=== PATIENT | male | born 1960 | race Hispanic/Latino ===

== ENCOUNTER 2017-10-01 16:43 | Outpatient (CLI) | payer MEDICARE ==
--- NOTE | 2017-10-02 07:44 | Magnetic Resonance Report ---
MR CERVICAL SPINE WITHOUT CONTRAST: HISTORY: Gait disorder, sensory level. TECHNIQUE: Axial T2. Sagittal T1, T2 and STIR. COMPARISON: None. Correlation is made with the MR brain without contrast performed the same day. FINDINGS: The cervical spinal cord is normal size and signal intensity. No mass or abnormal intramedullary signal. Normal height and alignment of the cervical vertebral bodies. The posterior elements are in appropriate relationship. No bone lesion, fracture or subluxation is identified. There is mild diffuse disc desiccation. Minimal disc space narrowing is noted at C5-6. Minimal arthritic changes in the facet joints. No hypertrophic changes. C2-3: No significant abnormality. C3-4: Minimal bilateral uncovertebral spurring is identified. No central canal stenosis or significant neural foraminal narrowing. C4-5: No significant abnormality. C5-6: A mild diffuse posterior bulging disc is identified. A small left paracentral disc protrusion is identified without significant mass effect. Mild facet arthropathy. No central canal stenosis or significant neural foraminal narrowing. C6-7: A small midline central disc protrusion is identified without mass effect. No central canal stenosis or significant neural foraminal narrowing. C7-T1: No significant abnormality. IMPRESSION: Minimal to mild cervical spondylosis which appears appropriate for this persons age. A small left paracentral disc protrusion at C5-6 and small midline disc protrusion at C6-7 are identified without significant mass effect. No central canal stenosis or high-grade neural foraminal narrowing.
--- NOTE | 2017-10-24 15:23 | Magnetic Resonance Report ---
MRI BRAIN WITHOUT CONTRAST: 10/01/17 16:43:00 CLINICAL: Gait disorder. This study was brought to my attention for dictation on 10/24/17. TECHNIQUE: Axial diffusion, T1, T2, FLAIR, gradient echo T2*, and sagittal T1 sequences on a 1.5 Roxi magnet. FINDINGS: The ventricles and sulci are large for age but the ventricles are disproportionately large compared to the sulci. No restricted diffusion. Moderate bilateral multifocal periventricular and subcortical white matter hyperintensities on FLAIR and T2. No mass or mass effect. No hemorrhage, edema or extra-axial collection. Normal pituitary and optic chiasm. The brainstem and cerebellum are normal. Intact vascular flow voids. Normal sinuses. The orbits, and soft tissues are normal. Normal calvarium and skull base. IMPRESSION: 1. Global cortical atrophy and disproportionate ventriculomegaly which suggests normal pressure hydrocephalus as a possible cause of gait disturbance. 2. No evidence of infarct or hemorrhage. 3. Moderate chronic white matter microangiopathy.
== END 2017-10-01 16:44 | disposition home or self-care (01) ==
LOC: MRI 16:43
PROVIDERS: ATTEND Specialist
DX: M50.222 Other cervical disc displacement at C5-C6 level (principal); M50.223 Other cervical disc displacement at C6-C7 level; M13.88 Other specified arthritis, other site; M12.88 Other specific arthropathies, not elsewhere classified, other specified site; M47.892 Other spondylosis, cervical region; G31.89 Other specified degenerative diseases of nervous system; G93.89 Other specified disorders of brain; I73.89 Other specified peripheral vascular diseases; H81.10 Benign paroxysmal vertigo, unspecified ear
CPT/HCPCS: 70551; 72141

== ENCOUNTER 2019-04-05 08:19 | Day surgery (SDC) | payer MEDICARE ==
[2019-04-05] MEDS ORDERED: NACL 0.9% 1000 ML 1,000 ML IV SCH (09:00)
--- NOTE | 2019-04-05 10:08 | Anesthesia Consultation ---
Anesthesia Consult and Med Hx Date of service: 04/05/19 - Airway Anesthetic Teeth Evaluation: Dentures ROM Head & Neck: Adequate Mental/Hyoid Distance: Adequate Mallampati Class: Class II Intubation Access Assessment: Possibly Difficult - Pulmonary Exam CTA: Yes - Cardiac Exam Cardiac Exam: RRR - Pre-Operative Health Status ASA Pre-Surgery Classification: ASA4 Proposed Anesthetic Plan: MAC - Pulmonary Hx Smoking: Yes (quit 2 yrs ago) Hx Asthma: Yes Hx Respiratory Symptoms: No COPD: Yes Hx Sleep Apnea: Yes - Cardiovascular System Hx Hypertension: Yes Hx Coronary Artery Disease: Yes Hx Heart Attack/AMI: Yes (2015 s/p CABG) Hx Percutaneous Transluminal Coronary Angioplasty (PTCA): Yes (most recent in 2014) Hx Cardia Arrhythmia: No Hx Pacemaker: No Hx Internal Defibrillator: No - Central Nervous System Hx Seizures: No CVA: No Hx Psychiatric Problems: No - Gastrointestinal Hx Gastroesophageal Reflux Disease: No - Endocrine Hx Renal Disease: Yes (CKD) Hx End Stage Renal Disease: No Hx Liver Disease: No Hx Insulin Dependent Diabetes: Yes Hx Thyroid Disease: No - Other Systems Hx Obesity: Yes (BMI 48) - Additional Comments Anesthesia Medical History Comments: No hx anesthetic complications. Stable cardiac status. No symptoms of decompensation today. Most recent cardiology records requested from outpatient crew leader. EF 25-30%, fixed deficit on nuc stress test, no changes in med regimen. Last dose plavix 6 days ago.
--- NOTE | 2019-04-05 10:08 | Anesthesia Day of Surgery ---
Anesthesia Day of Surgery - Day of Surgery Patient Examined: Yes Patient H&P Reviewed: Yes Patient is NPO: Yes
[2019-04-05] MEDS ORDERED: KETALAR ONE (11:03)
[2019-04-05] MEDS ORDERED: VERSED ONE (11:04)
[2019-04-05] MEDS ORDERED: DIPRIVAN 10 MG/ML IV ONE ×3 (11:04)
--- NOTE | 2019-04-05 12:15 | Operative Report ---
Operative Report Operative Report: Date of procedure: 04/05/2019 Procedure: Colonoscopy with Multiple Snare polypectomies, Multiple Hot Biopsy Polypectomies, Ablation of multiple colon polyps and Multiple submucosal injections. Attending physician: Miguel Flores M.D. [employer] Principal: Miguel Flores M.D. Indication: Patient is a 58-year-old male who presents for screening colonoscopy. He hasd a positive cologuard test. This colonoscopy serves to evaluate patient so that treatment may be directed based on the findings. Consent: Informed consent was obtained after advising the patient and family regarding nature of this procedure, its indications, potential benefits as well as possible complications including but not limited to bleeding perforation and adverse reaction to medication, infection as well as other cardiopulmonary complications. An informed written and verbal consent was then obtained after due opportunity was provided for questions and answers. Monitoring: Patient was monitored continuously with pulse oximetry and electrocardiographic recordings as well as blood pressure recordings. Vital signs remained stable throughout this procedure with no untoward events. Preoperative assessment: Patient was assessed immediately prior to this procedure for capacity to tolerate monitored anesthesia care and moderate sedation as well as general anesthesia. Patient's ASA classification is 3, Mallampati class is 2, Hyomental distance is 3. Instrument: Olympus video colonoscope Medications: Induction was performed using ketamine. Patient also received midazolam 2 mg given intravenously in divided doses. Also, Propofol was given intravenously in divided doses. For details please refer to anesthesia records. Description of procedure: Patient was placed in the left lateral decubitus position after achieving sedation, a digital rectal examination was performed following which the colonoscope was introduced into the anal verge and advanced to the cecum which was identified by the cecal valve, the appendiceal orifice, as well as by the cecal strap and direct transillumination. The colonoscope was subsequently withdrawn with careful inspection of all mucosal surfaces. Patient tolerated this procedure well and was subsequently taken to the recovery room. The following findings were noted. Findings: The preparation was excellent. The patient did not have any retained stool. The colon however was moderately tortuous. The procedure was prolonged due to the number of polyps that patient had. The cecum otherwise was normal. In the ascending colon, patient had a 1 cm flat polyp which was elevated with submucosal injection of saline. It was then removed with snare electrocautery a nd retrieved. At the hepatic flexure, patient had a diminutive flat polyp which was removed by hot biopsy polypectomy and ablated. There was an adjoining flat 1 cm polyp which was elevated with some saline and then removed by snare electrocautery and retrieved. In the transverse colon, patient had 3 polyps each measuring approximately 1 cm to 1.5 cm. One of the polyps clearly was over 1.5 cm. All polyps in the transverse colon were elevated with submucosal injection of saline and removed by snare electrocautery and retrieved. In the descending colon, patient had 5 polyps. These polyps measured between 8 mm to 1.5 cm. All polyps were flat and elevated with submucosal injection of saline and removed by snare electrocautery and retrieved. There was an adjoining diminutive polyp which again was ablated. In the sigmoid colon, patient had 1 sessile 3-4 mm polyp which was removed by hot biopsy polypectomy and retrieved. There were 2 additional polyps each measuring approximately 1 cm that were flat elevated with submucosal injection of saline and removed by snare electrocautery. In the rectum, patient had a 1 cm polyp which was flat and he was elevated with submucosal injection of saline and removed by snare electrocautery. There were 2 additional polyps each measuring between 5 mm. These were sessile. These were removed by hot biopsy polypectomy and retrieved. There were 2 additional diminutive 3-4 mm flat polyps which were completely ablated. On the retroflexed view of the anal verge, vision had internal hemorrhoids. The defect at some of the polypectomy sites was then closed with a Hemoclip. In all 3 hemoclips were used. On a retroflexed view of the anal verge, patient had internal hemorrhoids. Impression: Ascending colon polyp status post submucosal injection and snare polypectomy. Hepatic function flexure polyp status post ablation Hepatic flexure polyp status post submucosal injection and snare polypectomy Multiple transverse colon polyp status post submucosal injection and snare polypectomy Multiple descending colon polyp status post submucosal injection and snare polypectomy Descending colon polyp status post hot biopsy polypectomy and ablation Sigmoid colon polyp status post submucosal injection and snare polypectomy Sigmoid colon polyp status post ablation Sigmoid colon polyp status post hot biopsy polypectomy. Rectal polyp status post hot biopsy polypectomy Rectal polyp status post submucosal injection and snare polypectomy Rectal polyp status post ablation. Internal hemorrhoids Plan: Follow pathology report. High-fiber diet. Repeat colonoscopy in 6-12 months.
--- NOTE | 2019-04-05 12:16 | Discharge Summary ---
Short Stay Discharge Plan Activity: advance as tolerated Weight Bearing Status: Weight Bear as Tolerated Diet: regular Additional Instructions: Post Sedation D/C Instructions When you return home you may resume your regular diet unless otherwise directed. -Go directly home from the hospital and rest quietly. You may resume normal activities tomorrow. -Do NOT drive, return to work, operate any machinery or make any important personal or business decisions today. -Do NOT drink any alcohol or take nerve or sleeping drugs. They add to the effects of the medicine still present in your body. Follow up with: SCOTTY GAONA MD [Primary Care Provider] - 7 Days
[2019-04-05 12:53] VITALS: BP 131/86
== END 2019-04-05 08:20 | disposition home or self-care (01) ==
LOC: GIO 08:19
PROVIDERS: ATTEND Internal Medicine Gastroenterology
DX: D12.3 Benign neoplasm of transverse colon (principal); D12.4 Benign neoplasm of descending colon; K63.5 Polyp of colon; K62.1 Rectal polyp; K64.8 Other hemorrhoids; I12.9 Hypertensive chronic kidney disease with stage 1 through stage 4 chronic kidney disease, or unspecified chronic kidney disease; N18.3 Chronic kidney disease, stage 3 (moderate); E11.22 Type 2 diabetes mellitus with diabetic chronic kidney disease; E78.00 Pure hypercholesterolemia, unspecified; J44.9 Chronic obstructive pulmonary disease, unspecified; G47.30 Sleep apnea, unspecified; K21.9 Gastro-esophageal reflux disease without esophagitis; I25.10 Atherosclerotic heart disease of native coronary artery without angina pectoris; E66.9 Obesity, unspecified; Z68.42 Body mass index [BMI] 45.0-49.9, adult; Z95.5 Presence of coronary angioplasty implant and graft; Z79.899 Other long term (current) drug therapy; Z87.891 Personal history of nicotine dependence
CPT/HCPCS: 45381; 45384; 45385; 45388; 82962; 88305; J2250; J2704; J7030

== ENCOUNTER 2019-11-25 11:14 | Day surgery (SDC) | payer MEDICARE ==
[~2019-11-25 11:14] MED LIST: SODIUM CHLORIDE 0.9% 1000 ML 1,000 ML IV SCH
--- NOTE | 2019-11-25 14:25 | Anesthesia Consultation ---
Anesthesia Consult and Med Hx Date of service: 11/25/19 - Airway Anesthetic Teeth Evaluation: Dentures (upper) ROM Head & Neck: Adequate Mental/Hyoid Distance: Adequate Mallampati Class: Class III Intubation Access Assessment: Possibly Difficult - Pre-Operative Health Status ASA Pre-Surgery Classification: ASA3 - Pulmonary Hx Smoking: Yes Hx Asthma: Yes Hx Respiratory Symptoms: No SOB: Yes COPD: Yes Hx Sleep Apnea: Yes - Cardiovascular System Hx Hypertension: Yes Hx Coronary Artery Disease: Yes (s/p CABG) Hx Heart Attack/AMI: Yes Hx Percutaneous Transluminal Coronary Angioplasty (PTCA): Yes (most recent in 2014) Hx Cardia Arrhythmia: No Hx Pacemaker: No Hx Internal Defibrillator: No - Central Nervous System Hx Seizures: No CVA: No Hx Psychiatric Problems: No - Gastrointestinal Hx Gastroesophageal Reflux Disease: No - Endocrine Hx Renal Disease: Yes (CKD) Hx End Stage Renal Disease: No Hx Liver Disease: No Hx Insulin Dependent Diabetes: Yes Hx Thyroid Disease: No - Other Systems Hx Obesity: Yes (BMI 49.3) - Additional Comments Anesthesia Medical History Comments: EF 25-30%, stable cardiacwise according last visit with stenocaptioner, last nytroglicerine 2 months ago
--- NOTE | 2019-11-25 14:29 | Anesthesia Day of Surgery ---
Anesthesia Day of Surgery - Day of Surgery Patient Examined: Yes Patient H&P Reviewed: Yes Patient is NPO: Yes Beta Blockers: Yes
[2019-11-25] MEDS ORDERED: propofoL 200 MG/20 ML VIAL IV ONE ×2 (14:31)
[2019-11-25] MEDS ORDERED: LIDOCAINE MPF (2%) 20 MG/1 ML VIAL 5 ML ONE (15:30)
--- NOTE | 2019-11-25 16:09 | Operative Report ---
Operative Report Operative Report: Colonoscopy with multiple snare polypectomies, multiple polyp ablations, multiple submucosal injections, Hemoclip application. DATE: 11/25/2019 ATTENDING PHYSICIAN: Miguel Flores M.D. ATMOSPHERIC DRIER TENDER: Miguel Flores M.D. INDICATIONS: Patient is a 59y.o. male who presents for surveillance colonoscopy because of personal history of colon polyps. A colonoscopy is done to evaluate patient so that treatment may be directed based on the findings. CONSENT: Informed consent was obtained after the patient was advised regarding the nature of this procedure, its indications, potential benefits as well as possible complications including but not limited to bleeding, perforation, adverse reaction to medications, infection as well as cardiopulmonary complications. An informed written and verbal consent was then obtained after due opportunity was provided for questions and answers. MONITORING: Patient monitored continuously with pulse oximetry, electrocardiographic recordings as well as automatic blood pressure recordings. Patient remained stable throughout the procedure with no untoward events. PREOPERATIVE ASSESSMENT: Patient was assessed immediately prior to this procedure for capacity to tolerate moderate sedation/monitored anesthesia care. [place] [employer]hes[employer] association classification is 32. Mallampati class is 2. Hyomental distance is 3. INSTRUMENT: Olympus video colonoscope [id number]. MEDICATIONS: Propofol given intravenously in divided doses. For details, please refer to anesthesia records. DESCRIPTION OF PROCEDURE: Patient was placed in the left lateral decubitus position, after achieving sedation, a digital rectal examination was performed following which the colonoscope was introduced into the anal verge and advanced under direct visualization to the cecum which was identified by the ileocecal valve, the appendiceal orifice, the cecal strap as well as by direct transillumination in the right lower quadrant. Color texture mucosa and anatomy of the colon were carefully examined with the colonoscope. The colonoscope was then gently withdrawn with careful inspection of all mucosa surfaces. The patient tolerated the procedure well with no complications. After completion of the examination, patient was transferred to the recovery room. The prep written regimen was GoLYTELY and the preparation was fair. The following findings were noted. FINDINGS: The [place] prep scale score was 5. Patient had some retained stool in segments of the colon. The withdrawal time from the cecum was greater than 20 minutes. The colonoscopy was technically difficult and prolonged due to substantial retained stool and also significant number of colon polyps. In the proximal ascending colon, patient had a sessile 1.5 cm polyp which was elevated with submucosal injection of saline and removed by snare polypectomy. The base of the polyp was ablated. There were 3 diminutive flat polyps in the transverse colon that were ablated. There was a 1.5 to 2 cm polyp that was flat in the transverse colon that was elevated with submucosal injection of saline and lois justin completely with snare polypectomy. The edges of the polypectomy site were ablated. A Hemoclip was applied after removal of this polyp to close the polypectomy defect. There was another 1 cm polyp seen in the transverse colon. Again this was flat. It was elevated with submucosal injection of saline and snare polypectomy. In the distal transverse colon, there was another 1 cm polyp that was elevated with submucosal injection of saline and removed by snare polypectomy and retrieved. In the descending colon, there was a sessile 8 mm polyp which was removed by snare polypectomy and retrieved. Also, in the descending colon there was a 1 cm polyp which was elevated with submucosal injection of saline removed by snare polypectomy and retrieved. The sigmoid colon has some retained stool which was irrigated as much as possible to optimize visualization. The rectum also had some retained stool. Patient had diverticulosis involving the sigmoid colon and the descending colon. On the retroflexed view at the anal verge patient had internal hemorrhoids. IMPRESSION: Ascending colon polyp status post submucosal injection and snare polypectomy of base polyp ablation. Transverse colon polyps status post ablation. Multiple transverse colon polyp status post submucosal injection and snare polypectomy. Also Hemoclip application. Descending colon polyp status post snare polypectomy. Descending colon polyp status post submucosal injection snare polypectomy. Retained stool. Colonic diverticulosis. Internal Hemorrhoids . PLAN: Follow-up pathology report High fiber diet. Repeat colonoscopy in 6 months to 1 year
--- NOTE | 2019-11-25 16:10 | Discharge Summary ---
Short Stay Discharge Plan Activity: advance as tolerated Weight Bearing Status: Weight Bear as Tolerated Diet: regular Follow up with: SCOTTY GAONA MD [Primary Care Provider] - 7 Days
[2019-11-25 17:03] VITALS: BP 126/55
== END 2019-11-25 11:15 | disposition home or self-care (01) ==
LOC: GIO 11:14
PROVIDERS: ATTEND Internal Medicine Gastroenterology
DX: K62.5 Hemorrhage of anus and rectum (principal); K59.00 Constipation, unspecified; R14.0 Abdominal distension (gaseous); D12.3 Benign neoplasm of transverse colon; D12.2 Benign neoplasm of ascending colon; K51.40 Inflammatory polyps of colon without complications; J44.9 Chronic obstructive pulmonary disease, unspecified; E10.9 Type 1 diabetes mellitus without complications; K57.30 Diverticulosis of large intestine without perforation or abscess without bleeding; K64.8 Other hemorrhoids; I25.10 Atherosclerotic heart disease of native coronary artery without angina pectoris; E78.00 Pure hypercholesterolemia, unspecified; I10 Essential (primary) hypertension; G47.30 Sleep apnea, unspecified; K21.9 Gastro-esophageal reflux disease without esophagitis; E66.9 Obesity, unspecified; Z68.42 Body mass index [BMI] 45.0-49.9, adult; Z98.890 Other specified postprocedural states; Z86.010 Personal history of colon polyps; Z79.899 Other long term (current) drug therapy; Z79.82 Long term (current) use of aspirin; Z87.891 Personal history of nicotine dependence; Z95.1 Presence of aortocoronary bypass graft
CPT/HCPCS: 45381; 45385; 45388; 82962; 88305; J2704; J7030